=== PATIENT | male | born 2000 | race Caucasian/White ===

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

== ENCOUNTER 2024-08-03 18:30 | Emergency (ER) | payer OTHER ==
[~2024-08-03] VITALS: Ht 182.8 cm; Wt 99.8 kg
[2024-08-03] MEDS ORDERED: Bacitracin Zinc 14 GM TUBE T ONE (20:15)
[2024-08-03] MEDS ORDERED: Tdap Vaccine 0.5 ML SYR (Adult Vaccine) IM ONE (20:15)
== END 2024-08-03 20:18 | disposition home or self-care (01) ==
LOC: ED 18:30
DX: S00.81XA Abrasion of other part of head, initial encounter (principal); F19.10 Other psychoactive substance abuse, uncomplicated; W20.8XXA Other cause of strike by thrown, projected or falling object, initial encounter; Y93.89 Activity, other specified; Y92.89 Other specified places as the place of occurrence of the external cause; Y99.0 Civilian activity done for income or pay